=== PATIENT | male | born 1965 | race African-American/Black ===

== ENCOUNTER 2023-10-04 09:58 | Outpatient (CLI) | payer BC ==
[2023-10-04] MEDS ORDERED: Magnevist 469MG/ML 20 ML VIAL ONE (13:58)
== END 2023-10-04 09:59 | disposition home or self-care (01) ==
LOC: CSHMRI 09:58
PROVIDERS: ATTEND Urology
DX: N40.1 Benign prostatic hyperplasia with lower urinary tract symptoms (principal)
CPT/HCPCS: 72197; A9579